=== PATIENT | female | born 1960 | race Caucasian/White ===

== ENCOUNTER 2024-09-03 18:02 | Emergency (ER) | payer OTHER ==
[~2024-09-03] VITALS: Ht 152.4 cm; Wt 59.0 kg
[2024-09-03 18:07] VITALS: TEMP 36.9; O2SAT 98
[2024-09-03] MEDS: ACETAMINOPHEN 325MG TABLET PO ONE (20:14)
[2024-09-03] MEDS ORDERED: IBUP-2029 MT (21:31)
[2024-09-03 21:52] VITALS: BP 105/63; PULSE 72; RESP 17; O2SAT 99
== END 2024-09-03 21:53 | disposition home or self-care (01) ==
LOC: ER 18:02
DX: S09.8XXA Other specified injuries of head, initial encounter (principal); G89.11 Acute pain due to trauma; R51.9 Headache, unspecified; M47.812 Spondylosis without myelopathy or radiculopathy, cervical region; F12.90 Cannabis use, unspecified, uncomplicated; Y04.0XXA Assault by unarmed brawl or fight, initial encounter; Y93.89 Activity, other specified; Y92.89 Other specified places as the place of occurrence of the external cause; Y99.8 Other external cause status
CPT/HCPCS: 71045; 72131; 99284